=== PATIENT | male | born 1960 | race Caucasian/White ===

== ENCOUNTER 2017-05-23 18:45 | Emergency (ER) | payer OTHER ==
[2017-05-23 19:08] VITALS: BP 175/92; PULSE 62; RESP 18; TEMP 99.2; O2SAT 98
--- NOTE | 2017-05-23 20:34 | PD ---
HPI Chief Complaint: Fall Time Seen by Provider: 20:28 Travel History International Travel<30 days: No Contact w/Intl Traveler<30days: No Traveled to known affect area: No History of Present Illness HPI 56-year-old male presents to the emergency department by private transportation the care of his spouse for evaluation of injury sustained from a non-syncopal slip and fall this morning after being tripped by his bull mastiff dog. Patient fell from a standing height. Patient fell backwards. Patient did hit the posterior head injured his neck and injured his lower back. Patient denies any upper extremity or lower extremity numbness tingling or weakness. Patient has experienced no saddle anesthesia or bladder or bowel dysfunction. Patient has been inhibitory. Injury occurred approximately 10:30 this morning. Patient took ibuprofen 800 mg at 4 PM. Due to worsening symptom of pain patient decided come to the emergency room for further evaluation. Patient denies any chronic medical conditions or surgeries. Patient admits to tobacco use and alcohol use. Patient states he just got off of work as he works night shifts and was reportedly racing his dog in the house. Patient denies any previous head injury neck injury or low back injury. Patient reports that remaining still pain as approximately 1/10 in intensity however with movement of the lower back such as standing or walking or twisting pain increases to 8/ 10 in intensity. PFSH Past Medical History Narrative Medical Denies past medical history denies surgical history; positive tobacco use positive alcohol use; nursing notes reviewed Social History Alcohol Use: Yes Tobacco Use: Yes Allergies-Medications (Allergen,Severity, Reaction): Coded Allergies: No Known Allergies (Unverified , 05/23/17) Reported Meds & Prescriptions Reported Meds & Active Scripts Active Ibuprofen 800 Mg Tab 800 Mg PO Q8H PRN Robaxin (Methocarbamol) 750 Mg Tab 750 Mg PO Q6HR Lortab (Hydrocodone-Acetaminophen) 5-325 Mg Tab 1 Tab PO Q6H PRN Narrative Medication Ibuprofen as needed Review of Systems Except as stated in HPI: all other systems reviewed are Neg General / Constitutional: No: Fever, Chills Eyes: No: Visual changes HENT: No: Congestion Cardiovascular: No: Chest Pain or Discomfort Respiratory: No: Shortness of Breath Gastrointestinal: No: Nausea, Vomiting Genitourinary: No: Flank Pain Musculoskeletal: Positive: Limited ROM (lumbar back pain), Pain (mid to low back pain), No: Myalgias, Arthralgias, Weakness, Cramping Neurologic: No: Weakness, Syncope Psychiatric: No: Anxiety Endocrine: No: Heat Intolerance Hematologic/Lymphatic: No: Easy Bruising Physical Exam Narrative GENERAL: Well-developed well-nourished male in no apparent acute distress with cervical collar in place sitting upright; GCS 15 SKIN: Warm and dry. HEAD: Atraumatic. Normocephalic. Posterior occiput small soft tissue hematoma to palpation no abrasion no laceration no bony abnormalities. EYES: Pupils equal and round. Extraocular muscles intact. No raccoon eyes. No scleral icterus. No injection or drainage. ENT: No nasal bleeding or discharge. Mucous membranes pink and moist. No hemotympanum. NECK: Trachea midline. No JVD. Cervical collar in place tenderness to midline palpation to the lower cervical spine without bony step-off area CARDIOVASCULAR: Regular rate and rhythm. Chest wall mild tenderness to palpation anterior chest wall no point tenderness to palpation over ribs no crepitus no ecchymosis or abrasion. RESPIRATORY: No accessory muscle use. Clear to auscultation. Breath sounds equal bilaterally. GASTROINTESTINAL: Abdomen soft, non-tender, nondistended. Hepatic and splenic margins not palpable. MUSCULOSKELETAL: Extremities without clubbing, cyanosis, or edema. No obvious deformities. Palpation along the thoracic spine tenderness to the lower thoracic spine and upper lumbar spine to direct palpation without bony step-off no flank tenderness to palpation. NEUROLOGICAL: Awake and alert. No obvious cranial nerve deficits. Motor grossly within normal limits. Five out of 5 muscle strength in the arms and legs. Sensory exam intact bilaterally upper extremity and lower extremities to light touch. DTRs 2+ and equal bilaterally upper x-rays and lower extremities. Normal speech. PSYCHIATRIC: Appropriate mood and affect; insight and judgment normal. Data Data Last Documented VS Vital Signs Date Time Temp Pulse Resp B/P Pulse Ox O2 Delivery O2 Flow Rate FiO2 05/23/17 23:24 72 18 160/74 98 Room Air 05/23/17 19:08 99.2 Orders Apply Cervical Collar (05/23/17 20:28) Ct Brain W/O Iv Contrast(Rout) (05/23/17 ) Ct Cerv Spine W/O Contrast (05/23/17 ) Ct Lumb Spine W/O Contrast (05/23/17 ) Ct Thor Spine W/O Contrast (05/23/17 ) Collar Navarro (05/23/17 ) MDM Medical Decision Making Medical Screen Exam Complete: Yes Emergency Medical Condition: Yes Medical Record Reviewed: Yes Interpretation(s) Last Impressions Thoracic Spine CT 05/23/17 0000 Signed Impressions: Service Date/Time: Tuesday, May 23, 2017 21:28 - CONCLUSION: 1. No acute findings. Moderate degenerative change. Aldo Weiss MD Lumbar Spine CT 05/23/17 0000 Signed Impressions: Service Date/Time: Tuesday, May 23, 2017 21:28 - CONCLUSION: Normal examination for a patient of this age. Aldo Weiss MD Head CT 05/23/17 0000 Signed Impressions: Service Date/Time: Tuesday, May 23, 2017 21:24 - CONCLUSION: Normal examination for a patient of this age. Aldo Weiss MD Cervical Spine CT 05/23/17 0000 Signed Impressions: Service Date/Time: Tuesday, May 23, 2017 21:24 - CONCLUSION: 1. No acute findings. Diffuse idiopathic skeletal hyperostosis. Aldo Weiss MD Vital Signs Date Time Temp Pulse Resp B/P Pulse Ox O2 Delivery O2 Flow Rate FiO2 05/23/17 22:09 74 18 174/75 98 Room Air 05/23/17 20:35 66 18 98 Room Air 05/23/17 19:08 99.2 62 18 175/92 98 Differential Diagnosis Contusion sprain strain HNP lumbar radiculopathy fracture minor CHI ICH Narrative Course Patient has cervical collar in place imaging studies ordered which will include CT brain noncontrast to evaluate for ICH/skull fracture; CT cervical spine noncontrast disc herniation fracture cord compression; CT thoracic and lumbar spine due to reproducible back pain at the lower thoracic spine and upper lumbar spine to evaluate for nerve impingement cord impingement fracture. Patient declines any medication at this time. It is 11:12 PM and imaging studies have all been resulted and found to be grossly within normal range with no acute traumatic injury identified. Patient is stable for outpatient management. Cervical collar removed. Diagnosis Primary Impression: Minor closed head injury Additional Impression: Acute myofascial strain of lumbosacral region Qualified Code: S39.012A - Acute myofascial strain of lumbosacral region, initial encounter Referrals: Primary Care Physician Patient Instructions: General Instructions Additional Instructions: Follow head injury precautions 24 hours Apply ice to affected areas for next 12-24 hours intermittently Use moist heat as needed for comfort purposes after the first 24 hours Take medications as prescribed as needed for pain and/or muscle spasm Return to the emergency department for any concerns or change in condition Follow-up with primary care provider Med/Other Pt SpecificInfo: Prescription(s) given Scripts Ibuprofen 800 Mg [id number] Mg PO Q8H PRN (PAIN GREATER THAN 5) #15 TAB Ref 0 Prov:Kristin Capone MD 05/23/17 Methocarbamol (Robaxin)750 Mg [id number] Mg PO Q6HR #12 TAB Ref 0 Prov:Kristin Capone MD 05/23/17 Hydrocodone-Acetaminophen (Lortab)5-325 Mg Tab1 Tab PO Q6H PRN (PAIN) #10 TAB Ref 0 Prov:Kristin Capone MD 05/23/17 Disposition: 01 DISCHARGE HOME Condition: Stable Kristin Capone MD May 23, 2017 20:34
[2017-05-23 22:09] VITALS: BP 174/75; PULSE 74; RESP 18; O2SAT 98
--- NOTE | 2017-05-23 22:17 | RADRPT ---
EXAM DATE/TIME: 05/23/2017 21:24 [facility] COMPARISON: No previous studies available for comparison. INDICATIONS : Fall today RADIATION DOSE: 62.86 CTDIvol (mGy) MEDICAL HISTORY : None SURGICAL HISTORY : None. ENCOUNTER: Initial ACUITY: 1 day PAIN SCALE: 7/10 LOCATION: cranial TECHNIQUE: Multiple contiguous axial images were obtained of the head. Using automated exposure control and adj ustment of the mA and/or kV according to patient size, radiation dose was kept as low as reasonably a chievable to obtain optimal diagnostic quality images. DICOM format image data is available electro nically for review and comparison. FINDINGS: CEREBRUM: The ventricles are normal for age. No evidence of midline shift, mass lesion, hemorrhage or acute in farction. No extra-axial fluid collections are seen. POSTERIOR FOSSA: The cerebellum and brainstem are intact. The 4th ventricle is midline. The cerebellopontine angle i s unremarkable. EXTRACRANIAL: The visualized portion of the orbits is intact. SKULL: The calvaria is intact. No evidence of skull fracture. CONCLUSION: Normal examination for a patient of this age. Aldo Weiss MD on May 23, 2017 at 22:14 Board Certified Radiologist. This report was verified electronically.
--- NOTE | 2017-05-23 22:30 | RADRPT ---
EXAM DATE/TIME: 05/23/2017 21:24 [facility] COMPARISON: No previous studies available for comparison. INDICATIONS : Fall today, neck pain. RADIATION DOSE: 26.53 CTDIvol (mGy) MEDICAL HISTORY : None SURGICAL HISTORY : None. ENCOUNTER: Initial ACUITY: 1 day PAIN SCALE: 10/10 LOCATION: neck TECHNIQUE: Volumetric scanning of the cervical spine was performed. Multiplanar reconstructions in the sagittal, coronal and oblique axial planes were performed. Using automated exposure control and adjustment o f the mA and/or kV according to patient size, radiation dose was kept as low as reasonably achievable to obtain optimal diagnostic quality images. DICOM format image data is available electronically f or review and comparison. FINDINGS: No acute fracture or spondylolisthesis. Diffuse idiopathic skeletal hyperostosis present with flowing anterior osteophytes. No significant bony canal stenosis. CONCLUSION: 1. No acute findings. Diffuse idiopathic skeletal hyperostosis. Aldo Weiss MD on May 23, 2017 at 22:27 Board Certified Radiologist. This report was verified electronically.
--- NOTE | 2017-05-23 22:33 | RADRPT ---
EXAM DATE/TIME: 05/23/2017 21:28 [facility] COMPARISON: No previous studies available for comparison. INDICATIONS : Fall today. Back pain. RADIATION DOSE: 43.78 CTDIvol (mGy) MEDICAL HISTORY : None SURGICAL HISTORY : None. ENCOUNTER: Initial ACUITY: 1 day PAIN SCALE: 9/10 LOCATION: Bilateral middle back TECHNIQUE: Volumetric scanning of the thoracic spine was performed. Multiplanar reconstructions in the sagittal , coronal and oblique axial planes were performed. Using automated exposure control and adjustment o f the mA and/or kV according to patient size, radiation dose was kept as low as reasonably achievable to obtain optimal diagnostic quality images. DICOM format image data is available electronically f or review and comparison. FINDINGS: There is no acute fracture or spondylolisthesis. No paravertebral soft tissue swelling is present. 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 Mild kyphosis. No significant bony c anal stenosis. CONCLUSION: 1. No acute findings. Moderate degenerative change. Aldo Weiss MD on May 23, 2017 at 22:29 Board Certified Radiologist. This report was verified electronically.
--- NOTE | 2017-05-23 22:59 | RADRPT ---
EXAM DATE/TIME: 05/23/2017 21:28 [facility] COMPARISON: No previous studies available for comparison. INDICATIONS : Fall today, back pain. RADIATION DOSE: 43.26 CTDIvol (mGy) MEDICAL HISTORY : None SURGICAL HISTORY : None. ENCOUNTER: Initial ACUITY: 1 day PAIN SCALE: 10/10 LOCATION: middle lumbar TECHNIQUE: Volumetric scanning of the lumbar spine was performed. Multiplanar reconstructions in the sagittal, coronal and oblique axial planes were performed. Using automated exposure control and adjustment of the mA and/or kV according to patient size, radiation dose was kept as low as reasonably achievable t o obtain optimal diagnostic quality images. DICOM format image data is available electronically for review and comparison. FINDINGS: VERTEBRAE: Normal vertebral body height. ALIGNMENT: No evidence of subluxation. T12-L1: The thecal sac has a normal diameter. No evidence of disc bulge or protrusion. The neural foramina are patent bilaterally. L1-L2: The thecal sac has a normal diameter. No evidence of disc bulge or protrusion. The neural foramina are patent bilaterally. L2-L3: The thecal sac has a normal diameter. No evidence of disc bulge or protrusion. The neural foramina are patent bilaterally. L3-L4: The thecal sac has a normal diameter. No evidence of disc bulge or protrusion. The neural foramina are patent bilaterally. L4-L5: The thecal sac has a normal diameter. No evidence of disc bulge or protrusion. The neural foramina are patent bilaterally. L5-S1: The thecal sac has a normal diameter. No evidence of disc bulge or protrusion. The neural foramina are patent bilaterally. CONCLUSION: Normal examination for a patient of this age. Aldo Weiss MD on May 23, 2017 at 22:56 Board Certified Radiologist. This report was verified electronically.
[2017-05-23] MEDS ORDERED: ROBA750T PO (23:15)
[2017-05-23] MEDS ORDERED: IBUP800T23 PO (23:15)
[2017-05-23] MEDS ORDERED: HYDR-3533 PO (23:15)
[2017-05-23 23:24] VITALS: BP 160/74; PULSE 72; RESP 18; O2SAT 98
== END 2017-05-23 23:26 | disposition home or self-care (01) ==
LOC: PHED 18:45
DX: S09.90XA Unspecified injury of head, initial encounter (principal); S39.012A Strain of muscle, fascia and tendon of lower back, initial encounter; W01.0XXA Fall on same level from slipping, tripping and stumbling without subsequent striking against object, initial encounter; Z72.0 Tobacco use
CPT/HCPCS: 70450; 72125; 72128; 72131; 99285; L0150